=== PATIENT | female | born 1980 | race Caucasian/White ===

== ENCOUNTER 2020-01-21 12:31 | Emergency (ER) | payer BC ==
--- NOTE | 2020-01-21 12:36 | ERPHSYRPT ---
- History of Present Illness Time Seen by Provider: 01/21/20 12:35 Source: patient, EMS Exam Limitations: no limitations Physician History: This is a 39-year-old white female who has chronic low back pain issues and states that she does not have a pain specialist that she sees and is not on any pain medication but was lifting furniture today approximately 11:00 this morning, when suddenly she turned and twisted and felt a pop in her back. She did not fall or suffer any traumatic injury. The pain shot down her lower back and shoots into bilateral buttocks. Patient was brought in by EMS. Timing/Duration: today Method of Injury: lifting, twisted Quality: sharp, stabbing Back Pain Location: lumbar spine Back Pain Radiation: buttocks Severity of Pain-Max: moderate Severity of Pain-Current: moderate Modifying Factors: Improves With: movement (Worsens), rest (Improves) Associated Symptoms: lower back pain, muscle spasms, No urinary incontinence, No numbness in legs/feet Previous symptoms: same symptoms as today Allergies/Adverse Reactions: amoxicillin trihydrate [From Augmentin] Allergy (Mild, Verified 01/21/20 12:39) Rash ketorolac tromethamine [From Toradol] Allergy (Mild, Verified 01/21/20 12:39) Rash potassium clavula *RETIRED-08/19/12 [From Augmentin] Allergy (Mild, Verified 01/21/20 12:39) Rash potassium clavulanate [From Augmentin] Allergy (Mild, Verified 01/21/20 12:39) Rash zolpidem tartrate [From Ambien] Allergy (Mild, Verified 01/21/20 12:39) Rash Hx Tetanus, Diphtheria Vaccination/Date Given: Yes (UP TO DATE) Hx Influenza Vaccination/Date Given: Yes Hx Pneumococcal Vaccination/Date Given: Yes Travel Risk - International Travel Have you traveled outside of the country in past 3 weeks: No - Coronavirus Screening Are you exhibiting any of the following symptoms?: No Close contact with a COVID-19 positive Pt in past 14-21 Days: No - Review of Systems Constitutional: No Symptoms Eyes: No Symptoms Ears, Nose, & Throat: No Symptoms Respiratory: No Symptoms Cardiac: No Symptoms Abdominal/Gastrointestinal: No Symptoms Genitourinary Symptoms: No Symptoms Musculoskeletal: Back Pain, Injury Skin: No Symptoms Neurological: No Symptoms Psychological: No Symptoms Endocrine: No Symptoms Hematologic/Lymphatic: No Symptoms Immunological/Allergic: No Symptoms All Other Systems: Reviewed and Negative - Past Medical History Pertinent Past Medical History: Yes Neurological History: Migraines ENT History: No Pertinent History Cardiac History: No Pertinent History Respiratory History: No Pertinent History Endocrine Medical History: No Pertinent History Musculoskeletal History: Fractures GI Medical History: No Pertinent History History: Other Psycho-Social History: Anxiety Female Reproductive Disorders: No Pertinent History Other Medical History: CHRONIC PAIN with migraines, jejunum rupture, kidney stones - Past Surgical History Past Surgical History: Yes Neuro Surgical History: No Pertinent History Cardiac: No Pertinent History Respiratory: No Pertinent History Gastrointestinal: Other Genitourinary: Other Musculoskeletal: Orthopedic Surgery Female Surgical History: Hysterectomy Other Surgical History: bariatric surgery, tonsillectomy, port placement and removal and placed again, kidney stone removal. lt clavicle surgery - Social History Smoking Status: Former smoker How long have you smoked: 3 months Exposure to second hand smoke: Yes Drug Use: none Patient Lives Alone: No - Nursing Vital Signs Nursing Vital Signs: Initial Vital Signs Temperature 96.3 F 01/21/20 12:33 Pulse Rate 61 01/21/20 12:33 Blood Pressure 150/134 01/21/20 12:33 O2 Sat by Pulse Oximetry 98 01/21/20 12:33 Pain Scale Pain Intensity [Lower Medial 10 Back] Pain Intensity 10 - Physical Exam General Appearance: mild distress, alert, anxiety Eye Exam: PERRL/EOMI, eyes nml inspection Ears, Nose, Throat Exam: normal ENT inspection, moist mucous membranes Neck Exam: normal inspection, non-tender, supple, full range of motion Respiratory Exam: airway intact, No chest tenderness, No respiratory distress Gastrointestinal Exam: No tenderness Pelvic Exam: not done Rectal Exam: not done Back Exam: normal inspection, decreased range of motion, muscle spasm, No CVA tenderness, No vertebral tenderness Extremity Exam: normal inspection, normal range of motion, pelvis stable Neurologic Exam: alert, oriented x 3, cooperative, senior medical technologist II-XII nml as tested, normal mood/affect Skin Exam: normal color, warm, dry Lymphatic Exam: No adenopathy SpO2 Interpretation: normal O2 Delivery: Room Air - Course Nursing assessment & vital signs reviewed: Yes Ordered Tests: Active Orders 24 hr Category Date Time Status LUMBAR LIMITED (2 OR 3 VIEWS) Stat Exams 01/21/20 12:39 Taken Medication Summary Discontinued Medications Generic Name Dose Route Start Last Admin Trade Name Freq PRN Reason Stop Dose Admin Lorazepam 1 mg 01/21/20 12:39 01/21/20 13:13 Ativan 2 Mg/1 Ml Vial IM 01/21/20 12:40 1 mg STAT ONE Administration Lorazepam Confirm 01/21/20 12:59 Ativan 2 Mg/1 Ml Vial Administered 01/21/20 13:00 Dose 2 mg .ROUTE .STK-MED ONE Ondansetron HCl 4 mg 01/21/20 12:39 01/21/20 13:14 Zofran Odt 4 Mg PO 01/21/20 12:40 4 mg STAT ONE Administration Ondansetron HCl Confirm 01/21/20 12:59 Zofran Odt 4 Mg Administered 01/21/20 13:00 Dose 4 mg .ROUTE .STK-MED ONE Oxycodone/Acetaminophen 1 tab 01/21/20 13:28 Percocet Tablet 5/325mg PO 01/21/20 13:29 STAT STA - Progress Progress: improved, pain not gone completely Progress Note: 01/21/20 13:26 X-ray of the lumbar spine shows a new compression fracture and deformity T12 resulting in approximately 20% loss of the T12 vertebral body height compared to a prior study dated 05/07/2019. There other chronic compression fracture deformities present which are unchanged from that study performed on 05/07/2019. Counseled pt/family regarding: diagnosis, need for follow-up, rad results - Departure Departure Disposition: Home Clinical Impression: T12 compression fracture Condition: Stable Critical Care Time: No Referrals: LEDA DELANEY [Primary Care Provider] - Additional Instructions: Take medication as prescribed. Follow-up with your primary care physician for further management. Prescriptions: Oxycodone HCl/Acetaminophen [Percocet 5-325 mg Tablet] 1 each PO Q8H PRN PRN #12 tablet MDD 3 PRN Reason: Pain Carisoprodol 350 mg [Soma 350 mg] 350 mg PO Q12H PRN PRN #10 tablet PRN Reason: Muscle Spasms Prednisone 10 mg [Deltasone 10 mg] 10 mg PO TID #12 tablet
[2020-01-21 12:39] VITALS: O2SAT 98
[2020-01-21] MEDS ORDERED: ZOFRAN ODT 4 MG PO ONE (12:39)
[2020-01-21] MEDS ORDERED: Ativan 2 MG/1 ML VIAL IM ONE (12:39)
[2020-01-21] MEDS ORDERED: ZOFRAN ODT 4 MG ONE (12:59)
[2020-01-21] MEDS ORDERED: Ativan 2 MG/1 ML VIAL ONE (12:59)
[2020-01-21] MEDS ORDERED: PERCOCET TABLET 5/325MG PO STA (13:28)
--- NOTE | 2020-01-21 13:34 | XRAY ---
Exam: 3 view lumbar spine series from 01/21/2020. Comparison: Five-view lumbar spine series from 05/07/2019. Indication: 39-year-old female heard a loud "pop" while moving a couch, low back pain since then, no history of surgery. Fall/injury. Findings: AP, lateral, and coned-down lateral films of the lumbosacral junction were obtained. The bones are considerably demineralized in this 39-year-old patient. More importantly, there is a new mild generalized compression fracture deformity of the T12 vertebral body which I believe predominantly involves the superior vertebral endplate. T12 vertebral body height is about 80% of that anticipated from the prior study 05/07/2019. This fracture could be acute. There is also a moderate anterior wedge fracture deformity of T10 which is unchanged from 05/07/2019. Also, I note a mild anterior wedge fracture deformity of L1 which is unchanged from 05/07/2019. There is also moderate compression fracture deformity and central superior vertebral endplate L2 compression which is unchanged from 05/07/2019. Less pronounced mild central vertebral endplate compression is seen involving the superior and inferior endplates of L3, L4, and L5. This is unchanged. Surgical clips and suture material are seen within the left upper quadrant from prior gastric bypass surgery. Surgical clips within the right upper quadrant and right lower quadrant are seen consistent with prior cholecystectomy and appendectomy, respectively. The sacroiliac joints appear unremarkable. Impression: 1. There is a new compression fracture deformity of the superior vertebral endplate of T12 resulting in about 20% loss of the T12 vertebral body height as compared to the prior study from 05/07/2019. This probably represents an acute compression fracture injury. 2. Significant bone demineralization is again evident in this 39-year-old patient. Other compression fracture deformities involving T10, L1, and L2 appear about the same as 05/07/2019. Mild/moderate central vertebral endplate compressions are seen involving the L3-L5 vertebra, no change.
[2020-01-21 13:58] VITALS: BP 115/72; PULSE 75
== END 2020-01-21 13:59 | disposition home or self-care (01) ==
LOC: ED 12:31
DX: S22.088A Other fracture of T11-T12 vertebra, initial encounter for closed fracture (principal); M54.5 Low back pain; X50.0XXA Overexertion from strenuous movement or load, initial encounter
CPT/HCPCS: 72100; 96372; 99284; J2060; Q0162

== ENCOUNTER 2021-03-20 11:15 | Emergency (ER) | payer BC ==
--- NOTE | 2021-03-20 12:32 | ERPHSYRPT ---
- History of Present Illness Time Seen by Provider: 03/20/21 11:25 Source: patient Exam Limitations: no limitations Patient Subjective Stated Complaint: Pt was digging a hole to bury a dog in when she felt a pop and she was found passed out in the back yard by her step son, pt went in the house and didn't move until today to go to the doctor, pt has broke her back [address] in the past 2 years Triage Nursing Assessment: Pt brought self to the ER, tachycardic, hypertensive, rates pain 12/05, back is mottled where she has had a heating pad on it for the past 2 days, pain with palpatation, denies breathing problems, states that if she coughs her left hand will swell but will go down after a couple of hours, no edema to legs, pulses normal, skin n/w/d Physician History: This is a 40-year-old white female patient of Dr. Barrow who has chronic back pain issues including osteoporosis and history of thoracic and lumbar spine compression fractures and presents with lower back pain of 3 days duration. Patient was shoveling in her yard to bury her dog when she felt a pop and then severe pain present. She has not sought medical care in the last few days. She has been using a heating pad to the site but it is not been effective in stopping her back pain. Patient is here because of her persistent low back pain. She is concerned that there is a new fracture present. She denies urinary incontinence and denies loss of bowel control. Timing/Duration: day(s) (3) Method of Injury: bending, lifting, twisted Quality: sharp, stabbing Back Pain Location: lumbar spine Severity of Pain-Max: moderate Severity of Pain-Current: moderate Modifying Factors: Improves With: movement Associated Symptoms: lower back pain, No urinary incontinence, No loss of bowel control, No problems urinating, No numbness in legs/feet Previous symptoms: same symptoms as today Allergies/Adverse Reactions: amoxicillin trihydrate [From Augmentin] Allergy (Mild, Verified 03/20/21 11:31) Rash ketorolac tromethamine [From Toradol] Allergy (Mild, Verified 03/20/21 11:31) Rash potassium clavula *RETIRED-08/19/12 [From Augmentin] Allergy (Mild, Verified 03/20/21 11:31) Rash potassium clavulanate [From Augmentin] Allergy (Mild, Verified 03/20/21 11:31) Rash zolpidem tartrate [From Ambien] Allergy (Mild, Verified 03/20/21 11:31) Rash Home Medications: Abaloparatide [Tymlos] 1.56 ml SQ DAILY 03/20/21 [History] Hx Tetanus, Diphtheria Vaccination/Date Given: Yes (UP TO DATE) Hx Influenza Vaccination/Date Given: Yes Hx Pneumococcal Vaccination/Date Given: Yes Travel Risk - International Travel Have you traveled outside of the country in past 3 weeks: No - Coronavirus Screening Are you exhibiting any of the following symptoms?: No Close contact with a COVID-19 positive Pt in past 14-21 Days: No - Vaccine Status Have you recieved a Covid-19 vaccination: No - Review of Systems Constitutional: No Symptoms Eyes: No Symptoms Ears, Nose, & Throat: No Symptoms Respiratory: No Symptoms Cardiac: No Symptoms Abdominal/Gastrointestinal: No Symptoms Genitourinary Symptoms: No Symptoms Musculoskeletal: Back Pain Skin: No Symptoms Neurological: No Symptoms Psychological: No Symptoms Endocrine: No Symptoms Hematologic/Lymphatic: No Symptoms Immunological/Allergic: No Symptoms All Other Systems: Reviewed and Negative - Past Medical History Pertinent Past Medical History: Yes Neurological History: Migraines ENT History: No Pertinent History Cardiac History: No Pertinent History Respiratory History: No Pertinent History Endocrine Medical History: No Pertinent History Musculoskeletal History: Fractures GI Medical History: No Pertinent History History: Other Psycho-Social History: Anxiety Female Reproductive Disorders: No Pertinent History Other Medical History: CHRONIC PAIN with migraines, jejunum rupture, kidney stones - Past Surgical History Past Surgical History: Yes Neuro Surgical History: No Pertinent History Cardiac: No Pertinent History Respiratory: No Pertinent History Gastrointestinal: Other Genitourinary: Other Musculoskeletal: Orthopedic Surgery Female Surgical History: Hysterectomy Other Surgical History: bariatric surgery, tonsillectomy, port placement and removal and placed again, kidney stone removal. lt clavicle surgery - Social History Smoking Status: Former smoker How long have you smoked: 3 months Exposure to second hand smoke: Yes Drug Use: none Patient Lives Alone: No - Female History Hx Now: No - Nursing Vital Signs Nursing Vital Signs: Initial Vital Signs Temperature 97.2 F 03/20/21 11:18 Pulse Rate 120 H 03/20/21 11:18 Blood Pressure 157/110 03/20/21 11:18 O2 Sat by Pulse Oximetry 99 03/20/21 11:18 Pain Scale Pain Intensity [Right 8 Posterior Medial Back] Pain Intensity 8 - Physical Exam General Appearance: no apparent distress, alert, anxiety Eye Exam: PERRL/EOMI, eyes nml inspection Ears, Nose, Throat Exam: normal ENT inspection, moist mucous membranes Neck Exam: normal inspection, non-tender, supple, full range of motion Respiratory Exam: airway intact, No chest tenderness, No respiratory distress Cardiovascular Exam: tachycardia Gastrointestinal Exam: No tenderness Pelvic Exam: not done Rectal Exam: not done Back Exam: decreased range of motion, muscle spasm, No vertebral tenderness Extremity Exam: normal inspection, normal range of motion, pelvis stable Neurologic Exam: alert, oriented x 3, cooperative, apparel embroidery digitizer II-XII nml as tested, normal mood/affect, sensation nml, No motor deficits, No sensory deficit, No disoriented, No confusion Skin Exam: normal color, warm, dry Lymphatic Exam: No adenopathy SpO2 Interpretation: normal SpO2: 99 O2 Delivery: Room Air - Course Nursing assessment & vital signs reviewed: Yes Ordered Tests: Active Orders 24 hr Category Date Time Status LUMBAR COMPLETE (MIN 4 VIEWS) Stat Exams 03/20/21 12:14 Completed - Progress Progress: unchanged, pain not gone completely Progress Note: 03/20/21 12:57 X-ray of the lumbar spine shows no new or acute findings or abnormalities when compared to lumbar spine x-rays dated 01/21/2020. Patient has chronic T10, T12 and multiple lumbar spine compression fractures. They are unchanged from prior x-ray. Counseled pt/family regarding: diagnosis, need for follow-up, rad results - Departure Departure Disposition: Home Clinical Impression: Lumbar spine strain Condition: Stable Critical Care Time: No Referrals: LEDA BARROW [Primary Care Provider] - Follow up/PCP as directed Additional Instructions: Take your medication as prescribed. Follow-up with your prescribing physician for further management. Prescriptions: Oxycodone HCl/Acetaminophen [Percocet 5-325 mg Tablet] 1 each PO Q8H PRN PRN #6 tablet MDD 3 PRN Reason: Pain Cyclobenzaprine HCl 10 mg [Cyclobenzaprine 10 MG] 10 mg PO TID #10 tablet
--- NOTE | 2021-03-20 12:51 | XRAY ---
Indication: Low back pain following digging hole. Comparison: January 21, 2020. 5 view lumbar spine unchanged again demonstrating normal alignment with osteopenia, old T10/T12-L2 compression fractures, old right rib fractures, left abdomen suture material, and right abdomen surgical clips. No new/acute abnormalities.
[2021-03-20] MEDS ORDERED: Sterile H2O 10 ml IJ ONE (13:24)
[2021-03-20] MEDS ORDERED: Hydromorphone 1 mg/ml Injection ONE (13:24)
[2021-03-20] MEDS ORDERED: solu-MEDROL ONE (13:24)
[2021-03-20] MEDS ORDERED: Norflex 60 MG/2 ML ONE (13:24)
[2021-03-20] MEDS ORDERED: ZOFRAN ODT 4 MG ONE (13:24)
[2021-03-20] MEDS: Norflex 60 MG/2 ML IM ONE (13:30)
[2021-03-20] MEDS: ZOFRAN ODT 4 MG PO ONE (13:30)
[2021-03-20] MEDS: solu-MEDROL 125 MG, Sterile H2O 10 ml 2 ML IM ONE ×2 (13:34)
[2021-03-20] MEDS: Hydromorphone 1 mg/ml Injection IM ONE (13:34)
[2021-03-20 13:52] VITALS: BP 148/85; PULSE 54; O2SAT 94
== END 2021-03-20 14:09 | disposition home or self-care (01) ==
LOC: ED 11:15
DX: S39.012A Strain of muscle, fascia and tendon of lower back, initial encounter (principal); X50.0XXA Overexertion from strenuous movement or load, initial encounter; Y93.H1 Activity, digging, shoveling and raking; Y92.007 Garden or yard of unspecified non-institutional (private) residence as the place of occurrence of the external cause
CPT/HCPCS: 72110; 96372; 99284; J1170; J2360; J2930; Q0162

== ENCOUNTER 2023-10-27 10:06 | Emergency (ER) | payer BC ==
[2023-10-27 10:25] VITALS: TEMP 98.2
--- NOTE | 2023-10-27 10:34 | ERPHSYRPT ---
- History of Present Illness Time Seen by Provider: 10/27/23 10:33 Source: patient Exam Limitations: no limitations Patient Subjective Stated Complaint: Pt states "I was in [facility] got 2 feet of small intestine removed on the and then I was told I have heart troubles and need to find a hand model. I signed myself out of [facility] and went to Dr. Barrow today and he sent me here." Triage Nursing Assessment: Pt presented alert and oriented X 3, skin wpd. PT ambulates with a slow gait. Pt anxious and scared about her new diagnosis. Physician History: The patient, with a history of congestive heart failure, recently underwent a small bowel resection on the . She was discharged on the after having a bowel movement. She was prescribed Miralax for bowel regulation. The day after discharge, she experienced a fever spike and was readmitted to the hospital with a diagnosis of congestive heart failure. She left the hospital against medical advice due to a family . She has an upcoming cardiology appointment. She denies worsening of symptoms but reports fluid retention despite taking 20mg of a diuretic once daily. She also reports a high heart rate and swelling. The patient also reports an abscess in one of the surgical incisions, for which she is taking Keflex and Cleocin. She reports daily dressing changes and describes the drainage as looking like "dirty water." She denies any recent fevers over 100.4 degrees but reports a lot of nausea, for which she is taking Zofran. She also reports a pain level of 9. Timing/Duration: gradual onset Severity: moderate Modifying Factors: Improves With: nothing. Worsens With: movement Associated Symptoms: nausea, abdominal pain, fever, loss of appetite, weakness, No vomiting, No shortness of breath, No cough, No chest pain Allergies/Adverse Reactions: amoxicillin trihydrate [From Augmentin] Allergy (Mild, Verified 03/20/21 11:31) Rash ketorolac tromethamine [From Toradol] Allergy (Mild, Verified 03/20/21 11:31) Rash potassium clavula *RETIRED-08/19/12 [From Augmentin] Allergy (Mild, Verified 03/20/21 11:31) Rash potassium clavulanate [From Augmentin] Allergy (Mild, Verified 03/20/21 11:31) Rash zolpidem tartrate [From Ambien] Allergy (Mild, Verified 03/20/21 11:31) Rash Home Medications: Cephalexin Mh 500 mg [Keflex 500 mg] 500 mg PO Q6H 10/27/23 [History] Furosemide 20 mg [Lasix 20 mg] 20 mg PO DAILY 10/27/23 [History] Oxycodone HCl/Acetaminophen [Oxycodone-Acetaminophen 5-325] 1 each PO DAILY 10/27/23 [History] Smz/Tmp Ds Tablet [Bactrim Ds Tablet] 1 udtab PO BID 10/27/23 [History] Hx Tetanus, Diphtheria Vaccination/Date Given: Yes (UP TO DATE) Hx Influenza Vaccination/Date Given: Yes Hx Pneumococcal Vaccination/Date Given: Yes Immunizations Up to Date: No Travel Risk - International Travel Have you traveled outside of the country in past 3 weeks: No - Emerging Infectious Disease Are you exhibiting symptoms associated with any current EIDs: No - Review of Systems All Other Systems: Reviewed and Negative - Past Medical History Pertinent Past Medical History: Yes Neurological History: Migraines ENT History: No Pertinent History Cardiac History: No Pertinent History Respiratory History: CHF Endocrine Medical History: No Pertinent History Musculoskeletal History: Fractures GI Medical History: Other History: Other Psycho-Social History: Anxiety Female Reproductive Disorders: No Pertinent History Other Medical History: CHRONIC PAIN with migraines, jejunum rupture, kidney stones. bariatric surgery - Past Surgical History Past Surgical History: Yes Neuro Surgical History: No Pertinent History Cardiac: No Pertinent History Respiratory: No Pertinent History Gastrointestinal: Other Genitourinary: Other Musculoskeletal: Orthopedic Surgery Female Surgical History: Hysterectomy Other Surgical History: bariatric surgery, tonsillectomy, port placement and removal and placed again, kidney stone removal. lt clavicle surgery. 2 feet of small intestine removed 2023 - Female History Hx Last Menstrual Period: hysterectomy Hx Now: No - Social History Smoking Status: Former smoker How long have you smoked: 3 months Exposure to second hand smoke: Yes Drug Use: marijuana Patient Lives Alone: No - Social Determinants of Health Will the patient participate in the screening: Declined to provide - Nursing Vital Signs Nursing Vital Signs: Initial Vital Signs Temperature 98.2 F 10/27/23 10:16 Pulse Rate 120 H 10/27/23 10:16 Respiratory Rate 20 10/27/23 10:16 Blood Pressure 145/89 10/27/23 10:16 O2 Sat by Pulse Oximetry 91 L 10/27/23 10:16 Pain Scale Pain Intensity 0 - Physical Exam General Appearance: no apparent distress Eye Exam: eyes nml inspection Ears, Nose, Throat Exam: normal ENT inspection Neck Exam: normal inspection, supple, full range of motion Respiratory Exam: normal breath sounds, lungs clear, airway intact, No respiratory distress Cardiovascular Exam: tachycardia, capillary refill <2 sec, edema Gastrointestinal/Abdomen Exam: soft, tenderness, guarding, other (hypoactive bs, open abdominal wound LLQ with purulent drainage), No rebound Extremity Exam: swelling, tenderness Neurologic Exam: alert, oriented x 3, cooperative Skin Exam: diaphoresis, pale SpO2 Interpretation: borderline oxygenation SpO2: 91 O2 Delivery: Room Air - Course Nursing assessment & vital signs reviewed: Yes EKG Interpreted by Me: RATE (117), Sinus Tach, NORMAL AXIS, prolonged QT interval (QTc 479), Other (inverted T wave V1, V2, V3 w/o ST elevation or depression) Ordered Tests: Active Orders 24 hr Category Date Time Status IV Insertion STAT Care 10/27/23 10:50 Completed ABDOMEN AND PELVIS W CONTRAST [CT] Stat Exams 10/27/23 12:15 Completed CHEST WITH CONTRAST [CT] Stat Exams 10/27/23 12:11 Completed BLOOD CULTURE Stat Lab 10/27/23 14:15 Received CBC W DIFF Stat Lab 10/27/23 11:20 Results CMP Stat Lab 10/27/23 11:20 Completed D-DIMER QUANTITATIVE Stat Lab 10/27/23 11:20 Completed Ferritin Stat Lab 10/27/23 09:15 Completed LDH-LACTATE DEHYDROGENASE Stat Lab 10/27/23 09:15 Completed Lactic Acid Stat Lab 10/27/23 10:54 Completed MAGNESIUM Stat Lab 10/27/23 11:20 Completed Manual Differential NC Stat Lab 10/27/23 11:20 Results NT PRO BNPII Stat Lab 10/27/23 11:20 Completed PROCALCITONIN Stat Lab 10/27/23 11:20 Completed Pathologist Review Stat Lab 10/27/23 11:20 Results TROPONIN Q4H Lab 10/27/23 11:20 Completed UA W/RFX UR CULTURE Stat Lab 10/27/23 11:00 Completed VENOUS BLOOD GAS Stat Lab 10/27/23 10:50 Completed Medication Summary Discontinued Medications Generic Name Dose Route Start Last Admin Trade Name Freq PRN Reason Stop Dose Admin Aspirin 81 mg 10/27/23 11:56 10/27/23 12:07 Aspirin 81 Mg Tab.Chew PO 10/27/23 11:57 81 mg STAT ONE Administration Aspirin Confirm 10/27/23 12:06 Aspirin 81 Mg Tab.Chew Administered 10/27/23 12:07 Dose 324 mg .ROUTE .STK-MED ONE Enoxaparin Sodium 80 mg 10/27/23 12:12 10/27/23 12:20 Enoxaparin Sodium 80 Mg/0.8 Ml Syringe SQ 10/27/23 12:13 80 mg STAT ONE Administration Enoxaparin Sodium Confirm 10/27/23 12:18 Enoxaparin Sodium 80 Mg/0.8 Ml Syringe Administered 10/27/23 12:19 Dose 80 mg SQ .STK-MED ONE Furosemide 40 mg 10/27/23 10:58 10/27/23 11:12 Furosemide 40 Mg/4 Ml Vial IV 10/27/23 10:59 40 mg STAT ONE Administration Furosemide Confirm 10/27/23 11:04 Furosemide 40 Mg/4 Ml Vial Administered 10/27/23 11:05 Dose 40 mg .ROUTE .STK-MED ONE Sodium Chloride 1,000 mls @ 999 mls/hr 10/27/23 10:50 10/27/23 12:15 Sodium Chloride 0.9% 1000 Ml IV 10/27/23 11:50 Infused .Q1H1M STA Infusion Meropenem 1 gm/ Sodium 100 mls @ 200 mls/hr 10/27/23 10:50 10/27/23 11:42 Chloride IV 10/27/23 11:19 Infused STAT STA Infusion Vancomycin HCl 1 gm in 200 mls @ 125 mls/hr 10/27/23 10:50 10/27/23 13:46 Vancomycin 1 Gram/200 Ml Bag IV 10/27/23 12:25 Infused STAT ONE Infusion Sodium Chloride Confirm 10/27/23 11:05 Sodium Chloride 0.9% 1000 Ml Administered 10/27/23 11:06 Dose 1,000 mls @ ud .ROUTE .STK-MED ONE Sodium Chloride Confirm 10/27/23 11:05 Sodium Chloride 100ml Mini-Bag Plus Administered 10/27/23 11:06 Dose 100 mls @ ud IV .STK-MED ONE Vancomycin HCl Confirm 10/27/23 12:06 Vancomycin 1 Gram/200 Ml Bag Administered 10/27/23 12:07 Dose 1 gm in 200 mls @ ud IV .STK-MED ONE Meropenem Confirm 10/27/23 11:04 Meropenem 1 Gm Vial Administered 10/27/23 11:05 Dose 1 gm IV .STK-MED ONE Morphine Sulfate 2 mg 10/27/23 10:59 10/27/23 11:13 Morphine Sulfate 2 Mg/Ml Inj IV 10/27/23 11:00 2 mg STAT ONE Administration Morphine Sulfate Confirm 10/27/23 11:04 Morphine Sulfate 2 Mg/Ml Inj Administered 10/27/23 11:05 Dose 2 mg .ROUTE .STK-MED ONE Morphine Sulfate 2 mg 10/27/23 12:04 10/27/23 12:07 Morphine Sulfate 2 Mg/Ml Inj IV 10/27/23 12:05 2 mg STAT ONE Administration Morphine Sulfate Confirm 10/27/23 12:06 Morphine Sulfate 2 Mg/Ml Inj Administered 10/27/23 12:07 Dose 2 mg .ROUTE .STK-MED ONE Morphine Sulfate 4 mg 10/27/23 13:49 10/27/23 14:11 Morphine Sulfate 4 Mg/Ml Injection IV 10/27/23 13:50 4 mg STAT ONE Administration Morphine Sulfate Confirm 10/27/23 14:11 Morphine Sulfate 4 Mg/Ml Injection Administered 10/27/23 14:12 Dose 4 mg .ROUTE .STK-MED ONE Ondansetron HCl 4 mg 10/27/23 10:50 10/27/23 11:12 Ondansetron Hcl 4 Mg/2 Ml Vial IV 10/27/23 10:51 4 mg STAT ONE Administration Ondansetron HCl Confirm 10/27/23 11:04 Ondansetron Hcl 4 Mg/2 Ml Vial Administered 10/27/23 11:05 Dose 4 mg .ROUTE .STK-MED ONE Lab/Rad Data: Laboratory Result Diagrams 10/27/23 11:20 10/27/23 11:20 Laboratory Results 10/27/23 10/27/23 10/27/23 Range/Units 11:20 11:20 11:20 WBC (3.98-10.04) x10^3/uL RBC (3.93-5.22) x10^6/uL Hgb (11.2-15.7) g/dL Hct (34.1-44.9) % MCV (79.4-94.8) fL MCH (25.6-32.2) pg MCHC (32.2-35.5) g/dL RDW (11.7-14.4) % Plt Count (182-369) x10^3/uL MPV (9.4-12.3) fL Segmented Neutrophils (1.56-6.13) % Lymphocytes (Manual) (24-44) % Monocytes (Manual) (0.0-12.0) % Toxic Granulation Platelet Estimate (NORMAL) RBC Morphology Anisocytosis Smear Path Review D-Dimer 5.95 H* (0.0-0.50) mg/L pO2/FiO2 Ratio % VBG pH (7.32-7.42) VBG pCO2 at Pat Temp (42-55) mm/Hg VBG pO2 at Pat Temp (25-40) mm/Hg VBG HCO3 (22-28) meq/L VBG O2 Sat (Oziel) (95-100) VBG Base Excess (-2.0-2.0) VBG Hemoglobin VBG Carboxyhemoglobin (0.0-6.9) % T HGB POC Potassium (3.5-5.1) Sodium (135-145) mmol/L Potassium (3.5-5.1) mmol/L Chloride (98-107) mmol/L Carbon Dioxide (22-30) mmol/L Anion Gap (5-15) MEQ/L BUN (7-17) mg/dL Creatinine (0.52-1.04) mg/dL Estimated GFR ML/MIN Glucose (74-106) mg/dL Lactic Acid (0.4-2.0) Calcium (8.4-10.2) mg/dL Magnesium (1.6-2.3) mg/dL Iron 28 L (37-170) ug/dL TIBC 267 (265-462) ug/dL Iron Saturation 10 L (20-39) % Ferritin (6.24-137) ng/mL Total Bilirubin (0.2-1.3) mg/dL AST (14-36) U/L ALT (0-35) U/L Alkaline Phosphatase (38-126) U/L Lactate Dehydrogenase (120-246) U/L Troponin I < 0.012 (0.000-0.033) ng/mL NT-Pro-B Natriuret Pep (<300) pg/mL Serum Total Protein (6.3-8.2) g/dL Albumin (3.5-5.0) g/dL Procalcitonin (0.030-0.080) ng/mL Urine Color (Yellow) Urine Appearance (Clear) Urine pH (4.6-8.0) Ur Specific [place] (1.005-1.030) Urine Protein (Negative) Urine Glucose (UA) (Negative) mg/dL Urine Ketones (Negative) Urine Blood (Negative) Urine Nitrite (Negative) Urine Bilirubin (Negative) Urine Urobilinogen (0.2) mg/dL Ur Leukocyte Esterase (Negative) U Hyaline Cast (Auto) (0-2) /LPF Urine Microscopic RBC (0-5) /HPF Urine Microscopic WBC (0-5) /HPF Ur Epithelial Cells (None Seen) /HPF Urine Bacteria (None Seen) /HPF Urine Culture Reflexed (NO) 10/27/23 10/27/23 10/27/23 Range/Units 11:20 11:20 11:00 WBC 8.8 (3.98-10.04) x10^3/uL RBC 3.64 L (3.93-5.22) x10^6/uL Hgb 9.9 L (11.2-15.7) g/dL Hct 30.2 L (34.1-44.9) % MCV 83.0 (79.4-94.8) fL MCH 27.2 (25.6-32.2) pg MCHC 32.8 (32.2-35.5) g/dL RDW 16.4 H (11.7-14.4) % Plt Count 1089 H* (182-369) x10^3/uL MPV 9.2 L (9.4-12.3) fL Segmented Neutrophils 81 H (1.56-6.13) % Lymphocytes (Manual) 11 L (24-44) % Monocytes (Manual) 8 (0.0-12.0) % Toxic Granulation 1+ Platelet Estimate INCREASED (NORMAL) RBC Morphology ABNORMAL Anisocytosis 1+ Smear Path Review Pending D-Dimer (0.0-0.50) mg/L pO2/FiO2 Ratio % VBG pH (7.32-7.42) VBG pCO2 at Pat Temp (42-55) mm/Hg VBG pO2 at Pat Temp (25-40) mm/Hg VBG HCO3 (22-28) meq/L VBG O2 Sat (Oziel) (95-100) VBG Base Excess (-2.0-2.0) VBG Hemoglobin VBG Carboxyhemoglobin (0.0-6.9) % T HGB POC Potassium (3.5-5.1) Sodium 131 L (135-145) mmol/L Potassium 4.3 (3.5-5.1) mmol/L Chloride 93 L (98-107) mmol/L Carbon Dioxide 33 H (22-30) mmol/L Anion Gap 9.9 (5-15) MEQ/L BUN 7 (7-17) mg/dL Creatinine 0.52 (0.52-1.04) mg/dL Estimated GFR 117.4 ML/MIN Glucose 112 H (74-106) mg/dL Lactic Acid (0.4-2.0) Calcium 8.3 L (8.4-10.2) mg/dL Magnesium 2.0 (1.6-2.3) mg/dL Iron (37-170) ug/dL TIBC (265-462) ug/dL Iron Saturation (20-39) % Ferritin (6.24-137) ng/mL Total Bilirubin 0.70 (0.2-1.3) mg/dL AST 57 H (14-36) U/L ALT 18 (0-35) U/L Alkaline Phosphatase 122 (38-126) U/L Lactate Dehydrogenase (120-246) U/L Troponin I (0.000-0.033) ng/mL NT-Pro-B Natriuret Pep 4090 (<300) pg/mL Serum Total Protein 7.7 (6.3-8.2) g/dL Albumin 3.1 L (3.5-5.0) g/dL Procalcitonin 0.275 H (0.030-0.080) ng/mL Urine Color Yellow (Yellow) Urine Appearance Clear (Clear) Urine pH 7.5 (4.6-8.0) Ur Specific [place] <=1.005 (1.005-1.030) Urine Protein Negative (Negative) Urine Glucose (UA) Negative (Negative) mg/dL Urine Ketones Negative (Negative) Urine Blood Negative (Negative) Urine Nitrite Negative (Negative) Urine Bilirubin Negative (Negative) Urine Urobilinogen 0.2 (0.2) mg/dL Ur Leukocyte Esterase Negative (Negative) U Hyaline Cast (Auto) NONE SEEN (0-2) /LPF Urine Microscopic RBC 0-2 (0-5) /HPF Urine Microscopic WBC 0-2 (0-5) /HPF Ur Epithelial Cells None Seen (None Seen) /HPF Urine Bacteria None Seen (None Seen) /HPF Urine Culture Reflexed NO (NO) 10/27/23 10/27/23 10/27/23 Range/Units 10:54 10:50 09:15 WBC (3.98-10.04) x10^3/uL RBC (3.93-5.22) x10^6/uL Hgb (11.2-15.7) g/dL Hct (34.1-44.9) % MCV (79.4-94.8) fL MCH (25.6-32.2) pg MCHC (32.2-35.5) g/dL RDW (11.7-14.4) % Plt Count (182-369) x10^3/uL MPV (9.4-12.3) fL Segmented Neutrophils (1.56-6.13) % Lymphocytes (Manual) (24-44) % Monocytes (Manual) (0.0-12.0) % Toxic Granulation Platelet Estimate (NORMAL) RBC Morphology Anisocytosis Smear Path Review D-Dimer (0.0-0.50) mg/L pO2/FiO2 Ratio 21.0 % VBG pH 7.49 H (7.32-7.42) VBG pCO2 at Pat Temp 45 (42-55) mm/Hg VBG pO2 at Pat Temp 37 (25-40) mm/Hg VBG HCO3 34.3 H* (22-28) meq/L VBG O2 Sat (Oziel) 62.7 L (95-100) VBG Base Excess 9.9 H (-2.0-2.0) VBG Hemoglobin 10.1 VBG Carboxyhemoglobin 3.0 (0.0-6.9) % T HGB POC Potassium 4.2 (3.5-5.1) Sodium (135-145) mmol/L Potassium (3.5-5.1) mmol/L Chloride (98-107) mmol/L Carbon Dioxide (22-30) mmol/L Anion Gap (5-15) MEQ/L BUN (7-17) mg/dL Creatinine (0.52-1.04) mg/dL Estimated GFR ML/MIN Glucose (74-106) mg/dL Lactic Acid 1.3 (0.4-2.0) Calcium (8.4-10.2) mg/dL Magnesium (1.6-2.3) mg/dL Iron (37-170) ug/dL TIBC (265-462) ug/dL Iron Saturation (20-39) % Ferritin 99.6 (6.24-137) ng/mL Total Bilirubin (0.2-1.3) mg/dL AST (14-36) U/L ALT (0-35) U/L Alkaline Phosphatase (38-126) U/L Lactate Dehydrogenase 282 H (120-246) U/L Troponin I (0.000-0.033) ng/mL NT-Pro-B Natriuret Pep (<300) pg/mL Serum Total Protein (6.3-8.2) g/dL Albumin (3.5-5.0) g/dL Procalcitonin (0.030-0.080) ng/mL Urine Color (Yellow) Urine Appearance (Clear) Urine pH (4.6-8.0) Ur Specific [place] (1.005-1.030) Urine Protein (Negative) Urine Glucose (UA) (Negative) mg/dL Urine Ketones (Negative) Urine Blood (Negative) Urine Nitrite (Negative) Urine Bilirubin (Negative) Urine Urobilinogen (0.2) mg/dL Ur Leukocyte Esterase (Negative) U Hyaline Cast (Auto) (0-2) /LPF Urine Microscopic RBC (0-5) /HPF Urine Microscopic WBC (0-5) /HPF Ur Epithelial Cells (None Seen) /HPF Urine Bacteria (None Seen) /HPF Urine Culture Reflexed (NO) - Progress Progress: pain not gone completely Progress Note: Laboratory evaluation showed a platelet count greater than 1000 D-dimer greater than 5, elevated procalcitonin. CTA chest and abdomen were obtained showing no pulmonary embolus, moderate right-sided pleural effusion with almost complete compression atelectasis, small left-sided pleural effusion, postoperative ileus, free fluid around the liver and multiple levels of worsening compression fractures. Will attempt to transfer patient to [facility], where her surgeon is. Will see patient in: hospital (full admit) Counseled pt/family regarding: lab results, diagnosis, need for follow-up, rad results Medical Desision Making - Diagnostic Testing Diagnostic test were ordered, analyzed, and reviewed by me: Yes Radiological Interpretation: Interpreted by me, Reviewed by me, Teleradiologist Report - Risk of complications The pt has a mod risk of morbidity or mortality based on: Need for prescription drug management The pt has a high risk of morbidity or mortality based on: Decision regarding hospitilization or escalation of hosp level of care - Departure Departure Disposition: Transfer ([facility]) Clinical Impression: Thrombocytosis, Elevated d-dimer, Ileus, postoperative, Anemia, CHF exacerbation, Postoperative fever, Wound dehiscence, Wound infection after surgery, Compression fracture Condition: Stable Critical Care Time: No Referrals: LEDA BARROW [Primary Care Provider] - Follow up/PCP as directed Instructions: Heart Failure, Adult (DC), Heart Failure
[2023-10-27] MEDS ORDERED: Zofran 4 MG/2 ML VIAL ONE (11:04)
[2023-10-27] MEDS ORDERED: MORPHINE SULFATE 2 MG INJ ONE ×2 (11:04→12:06)
[2023-10-27] MEDS ORDERED: Lasix 40 MG/4 ML ONE (11:04)
[2023-10-27] MEDS ORDERED: Merrem IV ONE (11:04)
[2023-10-27] MEDS ORDERED: Sodium Chloride 0.9% 1000 ML 1,000 ML ONE (11:05)
[2023-10-27] MEDS ORDERED: Sodium Chloride 100ML MINI-BAG PLUS 100 ML IV ONE (11:05)
[2023-10-27 11:07] LABS: VBG BASE EXCESS 9.9 (-2.0-2.0); VBG HCO3- 34.3 meq/L (22-28); VBG HEMOGLOBIN 10.1; VBG O2 SATURATION 62.7 (95-100); VBG POTASSIUM 4.2 (3.5-5.1); VBG pH 7.49 (7.32-7.42)
[2023-10-27] MEDS: Sodium Chloride 0.9% 1000 ML 1,000 ML IV STA (11:10)
[2023-10-27] MEDS: Merrem 1 GM in Sodium Chloride 100ML MINI-BAG PLUS 100 ML IV STA (11:11)
[2023-10-27] MEDS: Lasix 40 MG/4 ML IV ONE (11:12)
[2023-10-27] MEDS: Zofran 4 MG/2 ML VIAL IV ONE (11:12)
[2023-10-27] MEDS: MORPHINE SULFATE 2 MG INJ IV ONE ×2 (11:13→12:07)
[2023-10-27 11:32] LABS: Hematocrit 30.2 % (34.1-44.9); Hemoglobin 9.9 g/dL (11.2-15.7); Mean Corpuscular Hemoglobin 27.2 pg (25.6-32.2); Mean Corpuscular Hgb Concent. 32.8 g/dL (32.2-35.5); Mean Platelet Volume 9.2 fL (9.4-12.3); Red Blood Count 3.64 x10^6/uL (3.93-5.22); Red Cell Distribution Width 16.4 % (11.7-14.4); White Blood Count 8.8 x10^3/uL (3.98-10.04)
[2023-10-27 11:49] LABS: Platelet Count 1089 x10^3/uL (182-369)
[2023-10-27 11:51] LABS: Lymphocytes 11 % (24-44); Monocyte 8 % (0.0-12.0); Neutrophils 81 % (1.56-6.13); Total Cells Counted 100
[2023-10-27 11:52] LABS: ANISOCYTOSIS 1+; Platelet Estimate INCREASED (NORMAL); Toxic Granulation 1+
[2023-10-27 12:02] LABS: ALBUMIN 3.1 g/dL (3.5-5.0); ANION GAP 9.9 MEQ/L (5-15); BILIRUBIN,TOTAL 0.7 mg/dL (0.2-1.3); Calcium 8.3 mg/dL (8.4-10.2); Creatinine 1 0.52 mg/dL (0.52-1.04); EST GLOMERULAR FILTRATION RATE 117.4 ML/MIN; PROCALCITONIN 0.275 ng/mL (0.030-0.080); Potassium 4.3 mmol/L (3.5-5.1); Total Protein 7.7 g/dL (6.3-8.2)
[2023-10-27] MEDS ORDERED: BABY ASPIRIN 81 MG CHEW ONE (12:06)
[2023-10-27] MEDS ORDERED: VANCOMYCIN 1 GRAM/200 ML BAG 1 GM/200 ML PIGGYBACK IV ONE (12:06)
[2023-10-27] MEDS: BABY ASPIRIN 81 MG CHEW PO ONE (12:07)
[2023-10-27] MEDS: VANCOMYCIN 1 GRAM/200 ML BAG 1 GM/200 ML PIGGYBACK IV ONE (12:08)
[2023-10-27] MEDS ORDERED: ENOXAPARIN SODIUM SQ ONE (12:18)
[2023-10-27] MEDS: ENOXAPARIN SODIUM SQ ONE (12:20)
[2023-10-27 12:45] LABS: Appearance Clear (Clear); Bacteria None Seen /HPF (None Seen); Bilirubin Negative (Negative); Blood Negative (Negative); Epithelial Cells None Seen /HPF (None Seen); Glucose, Urine Negative (Negative); Hyaline Casts NONE SEEN /LPF (0-2); Ketones Negative (Negative); Leukocyte Esterase Negative (Negative); Nitrite Negative (Negative); Ph 7.5 (4.6-8.0); Protein,Urine Dip Negative (Negative); RBC 0-2 /HPF (0-5); Specific Gravity <=1.005 (1.005-1.030); Urobilinogen 0.2 mg/dL (0.2); WBC 0-2 /HPF (0-5)
[2023-10-27 12:46] LABS: ADD URINE CULTURE? NO (NO)
--- NOTE | 2023-10-27 13:27 | XRAY ---
Indication: Short of breath and fever. Elevated d-dimer. Multiple contiguous axial images obtained through the chest using 80 cc Isovue 370 contrast and PE protocol. Comparison: None Adequate opacification of the pulmonary arteries including lobar and segmental branches. However mild diffuse respiration artifact limits evaluation of the more distal lobar and segmental branches. No obvious pulmonary embolus. Heart is enlarged. Aorta is normal in course and caliber. No pathologic mediastinal/hilar lymphadenopathy. Lungs demonstrates moderate right effusion with probable near complete right lower lobe atelectasis. Left lung demonstrates small left effusion. Elsewhere moderate right hemidiaphragm elevation, scattered bilateral subsegmental atelectasis/scarring, and tiny medial left lower lobe calcified granuloma. Bony thorax demonstrates osteopenia, multilevel remote-appearing compression fractures throughout visualized thoracolumbar spine, old left clavicle fracture with orthopedic hardware, and old left rib fractures. Also nondisplaced healing right posterior lateral [address] abdomen/pelvis reported separately. Impression: 1. Respiration artifact limits pulmonary embolus evaluation. No obvious pulmonary embolus. 2. Cardiomegaly with moderate right and small left effusions. Rule out cardiac decompensation/CHF versus fluid overload. 3. Right hemidiaphragm elevation with near-complete right lower lobe compressive atelectasis. 4. Chronic bony findings and old granulomatous disease.
--- NOTE | 2023-10-27 13:39 | XRAY ---
Indication: Abdomen pain. Status post abdominal surgery for ruptured jejunum October 14, 2023. Multiple contiguous axial images obtained through the abdomen and pelvis using 80 cc Isovue [address] chest reported separately. Again gastric bypass surgery, cholecystectomy, appendectomy, and hysterectomy. New left lower quadrant diverting ostomy. New perihepatic fluid, greatest inferior laterally measuring at least 11.4 x 5.3 x 8.5 cm. No free air. Noncontrasted stomach and bowel loops now demonstrates mild fluid and air distended small/large bowel loops up to 3.6 cm with synchronous fluid leveling favoring ileus. Increasing moderate fecal debris in ascending and proximal transverse colon. Again scattered sigmoid diverticulosis and a few hepatic/splenic calcified granulomas. Remaining liver, pancreas, spleen, adrenal glands, kidneys, ureters, and bladder are unremarkable. Minimal scattered aortoiliac calcifications. No AAA or pathologic retroperitoneal lymphadenopathy. Osseous structures again demonstrates osteopenia. There are again multilevel remote thoracolumbar compression deformities more extensive in appearance. New diffuse anasarca. Impression: 1. Status post abdominal surgery with new left lower quadrant diverting ostomy. New air and fluid distended small/large bowel loops with synchronous fluid leveling favoring ileus. Also worsening right hemicolon fecal stasis. 2. New nonspecific perihepatic free fluid as detailed. 3. New diffuse anasarca presumed related to CT chest findings for cardiac decompensation/CHF versus fluid overload. 4. Worsening multilevel thoracolumbar remote compression fractures. 5. Again chronic findings including sigmoid diverticulosis, arteriosclerotic disease, and old granulomatous disease.
[2023-10-27 13:41] LABS: Iron 28 ug/dL (37-170)
[2023-10-27 13:42] LABS: Iron Saturation 10 % (20-39); TIBC 267 ug/dL (265-462)
[2023-10-27 14:07] LABS: Ferritin 99.6 ng/mL (6.24-137)
[2023-10-27] MEDS: MORPHINE SULFATE 4 MG INJ IV ONE (14:11)
[2023-10-27] MEDS ORDERED: MORPHINE SULFATE 4 MG INJ ONE (14:11)
[2023-10-27 15:01] VITALS: PULSE 127; RESP 18
[2023-10-27 15:03] VITALS: BP 126/87
[2023-10-27 23:47] VITALS: O2SAT 91
== END 2023-10-27 15:20 | disposition short-term general hospital (02) ==
LOC: ED 10:06
DX: D75.839 Thrombocytosis, unspecified (principal); R79.1 Abnormal coagulation profile; K91.89 Other postprocedural complications and disorders of digestive system; K56.7 Ileus, unspecified; D64.9 Anemia, unspecified; I50.9 Heart failure, unspecified; T81.31XA Disruption of external operation (surgical) wound, not elsewhere classified, initial encounter; T81.49XA Infection following a procedure, other surgical site, initial encounter; M48.50XA Collapsed vertebra, not elsewhere classified, site unspecified, initial encounter for fracture; R11.0 Nausea; Z79.891 Long term (current) use of opiate analgesic; Z79.899 Other long term (current) drug therapy
CPT/HCPCS: 36000; 36415; 71260; 74177; 80053; 81001; 82728; 82805; 83540; 83550; 83605; 83615; 83735; 83880; 84145; 84484; 85025; 85379; 87040; 96360; 96365; 96372; 96374; 96375; 96376; 99285; J1650; J1940; J2270; J2405; A9270-GY; J3370

== ENCOUNTER 2023-11-07 22:54 | Emergency (ER) | payer BC ==
[2023-11-07 23:09] VITALS: BP 118/80; PULSE 106; RESP 20; TEMP 98.5; O2SAT 97
--- NOTE | 2023-11-07 23:21 | ERPHSYRPT ---
- History of Present Illness Time Seen by Provider: 11/07/23 23:05 Historian: patient Exam Limitations: no limitations Patient Subjective Stated Complaint: pt states that chest pain 30 minutes prior to coming Triage Nursing Assessment: pt came into the er via wheelchair; pt is axo x3; c/o chest pain; pt states 7/10 to rt side of chest; clear lung sounds in all lobes; skin PDW; no respiratory distress present; tachycardic Physician History: This is a 43-year-old white female patient who underwent a small bowel resection approximately 3 weeks ago and presents today to the emergency department with right sided chest and axillary pain that is described as an ache that started 30 minutes prior to arrival. Patient specifically states that her pain is gone at this time. Patient appears very anxious. She has no documented history of coronary artery disease. However, she states that she has an appointment to see pipe line gauger in [facility] within the next 1 to 2 weeks. She is not short of breath. She denies any specific abdominal pain. She does not have a cough. She has not had any vomiting or diarrhea symptoms. Patient has a "heart medicine". She was told she does have fluid around her heart. This is a relatively new medicine for her. Timing/Duration: today Activities at Onset: none Quality: aching Location: other (Right lateral chest and right axilla) Chest Pain Radiation: no radiation Severity of Pain-Max: mild Severity of Pain-Current: none Modifying Factors: Improves With: nothing Associated Symptoms: No denies symptoms Prior Chest Pain/Cardiac Workup: no prior chest pain Nitro Today/Relief: no nitro taken today Aspirin Treatment Today: no aspirin today Allergies/Adverse Reactions: amoxicillin trihydrate [From Augmentin] Allergy (Mild, Verified 11/07/23 22:56) Rash ketorolac tromethamine [From Toradol] Allergy (Mild, Verified 11/07/23 22:56) Rash potassium clavula *RETIRED-08/19/12 [From Augmentin] Allergy (Mild, Verified 11/07/23 22:56) Rash potassium clavulanate [From Augmentin] Allergy (Mild, Verified 11/07/23 22:56) Rash zolpidem tartrate [From Ambien] Allergy (Mild, Verified 11/07/23 22:56) Rash Home Medications: Empagliflozin [Jardiance] 10 mg PO DAILY 11/07/23 [History] Sacubitril/Valsartan [Entresto 24 mg-26 mg Tablet] 1 tab PO DAILY 11/07/23 [History] Spironolactone 25 mg [Aldactone 25 MG] 25 mg PO DAILY 11/07/23 [History] Hx Tetanus, Diphtheria Vaccination/Date Given: No (unknown) Hx Influenza Vaccination/Date Given: Yes Hx Pneumococcal Vaccination/Date Given: Yes Travel Risk - International Travel Have you traveled outside of the country in past 3 weeks: No - Emerging Infectious Disease Are you exhibiting symptoms associated with any current EIDs: No - Review of Systems Constitutional: No Symptoms Eyes: No Symptoms Ears, Nose, & Throat: No Symptoms Respiratory: No Symptoms Cardiac: Chest Pain Abdominal/Gastrointestinal: No Symptoms Genitourinary Symptoms: No Symptoms Musculoskeletal: No Symptoms Skin: No Symptoms Neurological: No Symptoms Psychological: Anxiety Endocrine: No Symptoms Hematologic/Lymphatic: No Symptoms Immunological/Allergic: No Symptoms All Other Systems: Reviewed and Negative - Past Medical History Pertinent Past Medical History: Yes Neurological History: Migraines ENT History: No Pertinent History Cardiac History: No Pertinent History Respiratory History: CHF Endocrine Medical History: No Pertinent History Musculoskeletal History: Fractures GI Medical History: Other History: Other Psycho-Social History: Anxiety Female Reproductive Disorders: No Pertinent History Other Medical History: CHRONIC PAIN with migraines, jejunum rupture, kidney stones. bariatric surgery - Past Surgical History Past Surgical History: Yes Neuro Surgical History: No Pertinent History Cardiac: No Pertinent History Respiratory: No Pertinent History Gastrointestinal: Other Genitourinary: Other Musculoskeletal: Orthopedic Surgery Female Surgical History: Hysterectomy Other Surgical History: bariatric surgery, tonsillectomy, port placement and removal and placed again, kidney stone removal. lt clavicle surgery. 2 feet of small intestine removed 2023 - Female History Hx Last Menstrual Period: hysterectomy Hx Now: No - Social History Smoking Status: Former smoker How long have you smoked: 3 months Exposure to second hand smoke: Yes Drug Use: marijuana Patient Lives Alone: No - Social Determinants of Health Will the patient participate in the screening: Declined to provide - Nursing Vital Signs Nursing Vital Signs: Initial Vital Signs Temperature 98.5 F 11/07/23 22:59 Pulse Rate 106 H 11/07/23 22:59 Respiratory Rate 20 11/07/23 22:59 Blood Pressure 118/80 11/07/23 22:59 O2 Sat by Pulse Oximetry 97 11/07/23 22:59 Pain Scale Pain Intensity 7 - Physical Exam General Appearance: no apparent distress, alert, anxiety Eye Exam: PERRL/EOMI, eyes nml inspection Ears, Nose, Throat Exam: normal ENT inspection, moist mucous membranes Neck Exam: normal inspection, non-tender, supple, full range of motion Respiratory Exam: normal breath sounds, lungs clear, airway intact, No chest tenderness (Note chest or axillary tenderness at the time of this examination. 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 The computer reads probable ischemia anterior le ads. I do not appreciate acute ischemia in these leads.) - Progress Progress: improved (Chest pain on the right side and right axilla have resolved completely per her report) Air Movement: good Progress Note: 11/07/23 23:21 My medical decision making and the assignment of moderate complexity to this patient's medical issue today is based on review of the patient's past medical history, review of the patient's medication list, review patient drug allergy list, history present illness and physical findings on examination. The workup we had planned includes placement of intravenous line, CBC, CMP, magnesium level, troponin level, BNP level, D-dimer, urinalysis, urine drug triage, twelve-lead EKG, provide the patient with 324 mg of baby aspirin and chest x- ray. Differential diagnoses includes but is not limited to anxiety, myocardial infarction, pleural effusion, pneumonia, pulmonary embolus, electrolyte abnormalities, arrhythmia The patient suddenly is refusing any aspirin, or any further workup other than the twelve-lead EKG. She is leaving AGAINST MEDICAL ADVICE. I did explain to her the importance of staying for full, complete workup as described above. Patient was told that I do not know why she is having the chest pain. It could be a heart attack, it could be an evolving heart attack, could be a blood clot in her lungs, could be as severe, emergent electrolyte abnormality. She was told that she could if she has an emergent medical issue. Patient is awake she is alert she is oriented and she understands the risks of leaving benefits of staying. She wants to sign AGAINST MEDICAL ADVICE form. Blood Culture(s) Obtained: No Antibiotics given: No Counseled pt/family regarding: diagnosis Medical Desision Making - Diagnostic Testing Diagnostic test were ordered, analyzed, and reviewed by me: No - Departure Departure Disposition: AMA Clinical Impression: Chest pain Condition: Stable Critical Care Time: No Referrals: LEDA DELANEY [Primary Care Provider] - Follow up/PCP as directed Additional Instructions: It is is important to have a complete workup of your acute chest pain that occurred today. Return to the emergency department as soon as you decide you want the complete workup as discussed.
== END 2023-11-07 23:16 | disposition left against medical advice (07) ==
LOC: ED 22:54
DX: R07.9 Chest pain, unspecified (principal); Z79.84 Long term (current) use of oral hypoglycemic drugs; Z79.899 Other long term (current) drug therapy
CPT/HCPCS: 99281